=== PATIENT | female | born 2000 | race Caucasian/White ===

== ENCOUNTER 2020-04-01 21:31 | Emergency (ER) | payer OTHER, SELFPAY ==
[2020-04-01 21:32] VITALS: BP 124/73; PULSE 97; RESP 15; TEMP 36.6; O2SAT 100; BMI 19.9
--- NOTE | 2020-04-01 21:59 | EKG12_ITS ---
Test Reason : SYNCOPE Blood Pressure : / mmHG Vent. Rate : 074 BPM Atrial Rate : 074 BPM P-R Int : 098 ms QRS Dur : 092 ms QT Int : 360 ms P-R-T Axes : 020 060 021 degrees QTc Int : 399 ms Sinus rhythm with short MS Consider pre excitation syndrome: WPW Confirmed by HORTENSIA GRANADO, STEVEN ([id number]), index editor JOHN NOVA ([id number] on 04/04/2020 2:37:48 PM Referred By: ANA Confirmed By:STEVEN BAZAN MD
--- NOTE | 2020-04-01 22:01 | ED.VIS.GEN ---
History of Present Illness Chief Complaint: Syncope Informant: Patient Onset: Today Context: Sudden Onset Narrative: Patient is a 19-year-old female with a history of pots presenting after syncopal episode. Patient states this feels like her typical syncopal episodes. She states she went to get up off the couch, felt lightheaded and then woke up on the ground. No reported seizure activity. Loss of conscious time was less than 1 minute. She still felt shaky about an hour after the episode when normally she started to feel better about 20 minutes afterwards. She had her aunt drive her to the emergency room to be evaluated further. She states she recently moved and has been busier this week and not keeping up with her electrolytes as much. She denies any associated chest pain, shortness of breath or difficulty breathing. She denies any swelling of her legs. She denies any vision changes. She did not hit her head and fell on carpet. She denies any other complaints at this time. Past Medical History - Allergies and Home Meds Allergies/Adverse Reactions: Allergies erythromycin base Allergy (Verified 04/01/20 21:36) Hives Penicillins Allergy (Verified 04/01/20 21:35) Hives Past Medical History: - - POTS Surgical History: adenoidectomy Smoking Status: Never smoker Review of Systems General: Reports: - - syncope. Denies: Chills, Fever, Sweats Eyes: Denies: Visual changes - bilaterally, Diplopia ENT: Denies: Rhinorrhea, Sore throat Cardiovascular: Denies: Chest pain, Palpitations Respiratory: Denies: Dyspnea, Cough, Dyspnea on exertion Gastrointestinal: Denies: Abdominal pain, Nausea, Vomiting, Diarrhea, Melena, Hematochezia Genitourinary: Denies: Dysuria, Hematuria, Frequency Musculoskeletal: Denies: Back pain, Extremity Pain Skin: Denies: Rash, Wounds Neurological: Denies: Headache, Weakness, Numbness Physical Exam Vital Signs/Narrative: Vital Signs Temp Pulse Resp BP Pulse Ox 04/01/20 21:32 97.9 F 97 15 124/73 H 100 Inital Vital Signs reviewed: Yes General: Well nourished, Well developed, No Acute Distress Head: Normocephalic, Atraumatic Eyes: Perrl, EOMI ENT: Moist mucous membranes, No rhinorrhea Neck: Supple, Nontender Cardiovascular: Regular rate, Regular rhythm, No murmurs Respiratory: No distress, CTA bilaterally, Chest nontender Abdomen: Soft, Nontender, Nondistended, Normal bowel sounds Back: Nontender, Normal Inspection Extremities: Nontender, No edema Skin: Normal color, No rash Neurological: Alert, Oriented x3, Cranial nerves II-XII grossly intact, Normal Strength, Normal Sensation Psychological: Normal affect, Normal Mood Diagnostic/Tx/Re-eval - Rhythm Strip Rhythm Strip: Sinus Rhythm Rate: 74 Ectopy: None - EKG Initial EKG Interpretation: Sinus Rhythm, - - Normal sinus rhythm at a rate of 74 AZ interval 98 QRS 92 QTc [address] segments - Medical Decision Making Patient is evaluated after an episode of syncope. She had a prodrome of lightheadedness right before. She has a history of pots and this is consistent with this. EKG is consistent only with a very mildly shortened AZ interval. No signs of a right axis/right-sided heart strain. Normal ST segments. Did check a blood glucose which was 120. I do not think this is from hypoglycemia. Patient is well-appearing. She does not have associated chest pain, shortness of breath or other concerning symptoms. She is hemodynamically stable in the emergency room. I do not think IV fluids or checking electrolytes is indicated at this time. She is instructed to follow-up with her PCP. Patient is given Gatorade and crackers in the emergency room which she tolerates well. She is ambulatory in the emergency room and discharged home. Patient is counseled on signs and symptoms requiring return to the emergency room. Patient verbalizes agreement and understand this plan. Patient discharged home in stable and improved condition. ED Disposition - Plan for ED Patient: Disposition: Home or Assisted Living Diagnosis: Syncope Instructions: ED VAGAL SYNCOPE Additional Instructions: Please follow-up with your primary care doctor. Return the emergency room if you have any worsening symptoms.
[2020-04-01 22:05] LABS: Bedside Glucose 112 mg/dL (70-110)
[2020-04-01 23:36] VITALS: BP 118/68; PULSE 70
== END 2020-04-02 00:03 | disposition home or self-care (01) ==
LOC: ED 23:53
PROVIDERS: Emergency Provider Emergency Medicine
DX: R55 Syncope and collapse (principal); Z79.3 Long term (current) use of hormonal contraceptives; Z79.899 Other long term (current) drug therapy; Z88.0 Allergy status to penicillin; Z88.1 Allergy status to other antibiotic agents
CPT/HCPCS: 82962; 93005; 99282

== ENCOUNTER 2020-05-28 17:46 | Emergency (ER) | payer OTHER, SELFPAY ==
[2020-05-28 17:49] VITALS: BP 109/63; PULSE 95; RESP 17; TEMP 36.5; O2SAT 98; BMI 18.6
--- NOTE | 2020-05-28 18:06 | ED.VIS.GEN ---
History of Present Illness Chief Complaint: Nausea/Vomiting Informant: Patient Onset: Days - 5 days Context: Gradual Onset Current Severity: Mild Maximum Severity: Mild Narrative: Patient presents with nausea and vomiting for the past 5 days. She states last Saturday she was seen at an urgent care in [place] for red sores and bumps on her private area. She was told they thought she had syphilis. They started her on doxycycline. The following day she had nausea and vomiting. She called the office and was switched to Bactrim. She states the lesions on her labia are improving. She continues to have nausea and vomiting. 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 - Past Medical History (1) POTS (postural orthostatic tachycardia syndrome) Status: Chronic Past Medical History - Allergies and Home Meds Allergies/Adverse Reactions: Allergies erythromycin base Allergy (Verified 05/28/20 17:49) Hives Penicillins Allergy (Verified 05/28/20 17:49) Hives Primary Care Physician: Care Physician,No Primary [Primary Care Provider] - Prior records reviewed: Yes Surgical History: adenoidectomy Smoking Status: Never smoker Review of Systems General: Denies: Chills, Fever Eyes: Denies: Visual changes - bilaterally ENT: Denies: Bilateral ear pain Cardiovascular: Denies: Chest pain Respiratory: Denies: Dyspnea, Cough Gastrointestinal: Reports: Nausea, Vomiting. Denies: Abdominal pain, Diarrhea Genitourinary: Denies: Dysuria Musculoskeletal: Denies: Extremity Pain Skin: Reports: Rash Hematologic: Denies: Easy bruising, Easy bleeding Allergy: Denies: Uticaria Physical Exam Vital Signs/Narrative: Vital Signs Temp Pulse Resp BP Pulse Ox 05/28/20 17:49 97.7 F L 95 17 109/63 98 Inital Vital Signs reviewed: Yes General: Well nourished, Well developed Head: Normocephalic ENT: Moist mucous membranes Neck: Supple Cardiovascular: Regular rate, Regular rhythm Respiratory: No distress, CTA bilaterally Abdomen: Soft, Nontender Extremities: Nontender Skin: Normal color Neurological: Alert, Oriented x3 Psychological: Normal affect Diagnostic/Tx/Re-eval Laboratory Results 05/28/20 05/28/20 05/28/20 18:15 18:20 18:20 WBC 5.8 RBC 4.59 Hgb 13.9 Hct 42.4 MCV 92.4 MCH 30.3 MCHC 32.8 RDW Std Deviation 39.1 RDW Coeff of Janel 11.7 Plt Count 256 MPV 10.2 Immature Gran % (Auto) 0.300 Neut % (Auto) 60.8 Lymph % (Auto) 31.3 Stevens % (Auto) 5.9 Eos % (Auto) 1.0 Baso % (Auto) 0.7 Absolute Neuts (auto) 3.5 Absolute Lymphs (auto) 1.80 Nucleated RBC % 0 Sodium 142 Potassium 3.3 L Chloride 108 H Carbon Dioxide 26.0 Anion Gap 8 BUN 7 Creatinine 0.74 Estim Creat Clear Calc 99.10 Est GFR (MDRD) Af Amer 127 Est GFR (MDRD) Non-Af 105 BUN/Creatinine Ratio 9.4 L Glucose 98 Calcium 8.7 Serum , Qual Urine Color Yellow Urine Clarity Clear Urine pH 6.5 Ur Specific [place] 1.020 Urine Protein 15 H Urine Glucose (UA) Normal Urine Ketones 5 H Urine Occult Blood 50 H Urine Nitrite Negative Urine Bilirubin Negative Urine Urobilinogen Normal Ur Leukocyte Esterase Negative Urine RBC 0-5 SEEN Urine WBC 0-5 SEEN Ur Squamous Epith Cells 5-10 SEEN Urine Bacteria 1+ Urine Mucus 1+ 05/28/20 18:20 WBC RBC Hgb Hct MCV MCH MCHC RDW Std Deviation RDW Coeff of Janel Plt Count MPV Immature Gran % (Auto) Neut % (Auto) Lymph % (Auto) Stevens % (Auto) Eos % (Auto) Baso % (Auto) Absolute Neuts (auto) Absolute Lymphs (auto) Nucleated RBC % Sodium Potassium Chloride Carbon Dioxide Anion Gap BUN Creatinine Estim Creat Clear Calc Est GFR (MDRD) Af Amer Est GFR (MDRD) Non-Af BUN/Creatinine Ratio Glucose Calcium Serum , Qual NEGATIVE Urine Color Urine Clarity Urine pH Ur Specific [place] Urine Protein Urine Glucose (UA) Urine Ketones Urine Occult Blood Urine Nitrite Urine Bilirubin Urine Urobilinogen Ur Leukocyte Esterase Urine RBC Urine WBC Ur Squamous Epith Cells Urine Bacteria Urine Mucus - Medical Decision Making Patient is given liter IV fluids and Zofran. On repeat evaluation her nausea is improved. I was able to review records through [email or web address]. Her syphilis test was nonreactive. HSV 1 and 2 IgG antibiotics were negative. Gonorrhea and Chlamydia tests were normal. Patient is referred to Dr. 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 ED Disposition - Plan for ED Patient: Disposition: Home or Assisted Living Diagnosis: Vomiting Instructions: ED Nausea Vomiting Adult Prescriptions: Ondansetron [Zofran Odt] 4 mg PO Q8H PRN PRN #10 tablet PRN Reason: Nausea Referrals: Mitzy Weinstein MD [STAFF PHYSICIAN] - As soon as possible
[2020-05-28] MEDS: 0.9% Normal Saline 1,000 ML 1000 ML IV (18:20)
[2020-05-28] MEDS: Ondansetron 4 MG/2 ML Vial IV (18:20)
[2020-05-28 18:29] LABS: Color, Urine Yellow (Yellow); Glucose, Dipstick Normal (Normal); Ketone-Dipstick 5 mg/dl (Negative); Leukocyte Esterase-Dipstick Negative /ul (Negative); Nitrite-Dipstick Negative (Negative); Occult Blood-Urine 50 /ul (Negative); Protein-Dipstick 15 mg/dl (Negative); Urine Bilirubin Dipstick Negative (Negative); Urine Clarity Clear (Clear); Urine Urobilinogen Normal (Normal); Urine pH 6.5 (5.0 - 8.0)
[2020-05-28 18:32] LABS: Absolute Neutrophil Count 3.5 X10^3/uL (2.0-7.7); Basophil# 0.04 X10^3/uL; Basophil% 0.7 % (0-1); Eosinophil# 0.06 X10^3/uL; Hematocrit 42.4 % (37-47); Hemoglobin 13.9 g/dL (12.0-15.0); Lymphocyte % 31.3 % (19-41); Mean Corp Hgb Conc 32.8 g/dL (32-36); Mean Corpuscular Hgb 30.3 pg (27.0-32.0); Mean Corpuscular Volume 92.4 fL (81-99); Mean Platelet Vol. 10.2 fl (6.2-12.0); Monocyte# 0.34 X10^3/uL; Monocyte% 5.9 % (0-10); NRBC Flagged by Analyzer 0 % (0-5); Neutrophil # 3.49 X10^3/uL (2.7-7.7); Neutrophil % 60.8 % (47-70); Platelet Count 256 K/mm3 (150-450); RBC Distribution Width CV 11.7 % (11.6-14.6); RBC Distribution Width SD 39.1 fl (35.1-43.9); Red Blood Count 4.59 M/mm3 (4.2-5.4); White Blood Count 5.8 K/mm3 (4.4-11.0)
[2020-05-28 18:38] LABS: Internal QC Validated? YES +Cl - CLEAR BKGD
[2020-05-28 18:41] LABS: Pregnancy, Serum, hCG Quali. NEGATIVE Negative
[2020-05-28 18:42] LABS: Anion Gap 8 (5-15); BUN 7 mg/dL (7-18); BUN/Creat Ratio 9.4 RATIO (10-20); Calcium,Total 8.7 mg/dL (8.5-10.1); Chloride 108 mmol/L (98-107); Creatinine, Serum 0.74 mg/dL (0.55-1.02); EST Glomerular Filtration Rate 105 mL/min (>60); Est Glom Filt Rate - Afr Amer 127 mL/min (>60); Glucose 98 mg/dL (74-106); Potassium 3.3 mmol/L (3.5-5.1); Sodium Level 142 mmol/L (136-145)
[2020-05-28 18:45] LABS: Bacteria 1+ /hpf (None Seen); Mucous, Urine 1+ /hpf (<or=2+); Red Blood Cells-Urine 0-5 SEEN /hpf (0-5); Squamous Epithelial Cells - UA 5-10 SEEN /hpf (5-10); White Blood Cells 0-5 SEEN /hpf (0-5)
[2020-05-28 20:17] VITALS: BP 124/76; PULSE 94; RESP 17; O2SAT 98
== END 2020-05-28 20:18 | disposition home or self-care (01) ==
PROVIDERS: Emergency Provider Emergency Medicine
DX: R11.2 Nausea with vomiting, unspecified (principal); N90.89 Other specified noninflammatory disorders of vulva and perineum; I49.8 Other specified cardiac arrhythmias
CPT/HCPCS: 80048; 81001; 84703; 85025; 96361; 96374; 99283; J7030; A4216; J2405

== ENCOUNTER 2020-09-07 18:00 | Emergency (ER) | payer OTHER, SELFPAY ==
[2020-09-07 18:01] VITALS: BP 127/88; PULSE 112; RESP 15; TEMP 38.1; O2SAT 99; BMI 18.8
[2020-09-07 18:23] VITALS: TEMP 37.1
[2020-09-07] MEDS: Clindamycin HCl 150 MG Capsule 300 MG PO (18:25)
[2020-09-07] MEDS: Acetaminophen 500 MG Tablet 1000 MG PO (18:25)
--- NOTE | 2020-09-07 19:15 | DCINST.ED_ITS ---
ED Disposition - Plan for ED Patient: Instructions: ED Abscess Incision And Drainage Prescriptions: Clindamycin [Cleocin] 300 mg PO 4X/DAY #80 cap Prescription Printed Referrals: Jcarlos Navarrete MD [NON-STAFF] -
--- NOTE | 2020-09-07 19:17 | ED.VISSUMM ---
- ER Visit Summary Date of Service: 09/07/20 Chief Complaint: Ingrown hair History of Present Illness: The patient is a 20 F presenting with ingrown hair. Patient states she noticed an ingrown hair in her pelvic region on Saturday. She states she tried to squeeze it and try to use a clean needle to drain it. It has now increased in size and has redness surrounding it. She had a temperature up to 100.6. She denies other complaints. Physical Examination: Vitals are stable. Temperature 100.6. Alert no acute distress. HEENT exam is unremarkable. Neck is supple. Lungs are clear and equal bilaterally. Heart is regular rate and rhythm. Abdomen is soft nontender nondistended. 2 cm left suprapubic indurated abscess with mild amount of fluctuance, mild surrounding erythema. Extremities are unremarkable. Skin is warm and dry. No focal neurologic deficit. Remainder of exam is unremarkable. Emergency Department Course and Treatment: Repeat temperature normal. Patient was given Tylenol. Area was anesthetized with lidocaine. Incised with 11 blade. Mild amount of pus was drained. Irrigated with saline. She is given clindamycin and a prescription for clindamycin. She was given Dr. Navarrete on-call for no doc for follow-up. Advised return to ED for worsening complaints. Disposition: Discharge home Impression: Abdominal wall abscess, I&D This note was generated with [employer] dictation software. It may contain incorrect words, spelling, and punctuation that were not noted in review of the chart prior to signing ED Disposition - Plan for ED Patient: Instructions: ED Abscess Incision And Drainage Prescriptions: Clindamycin [Cleocin] 300 mg PO 4X/DAY #80 cap Prescription Printed Referrals: Jcarlos Navarrete MD [NON-STAFF] -
== END 2020-09-07 19:33 | disposition home or self-care (01) ==
PROVIDERS: Emergency Provider Emergency Medicine
DX: L02.211 Cutaneous abscess of abdominal wall (principal); J45.909 Unspecified asthma, uncomplicated; Z79.899 Other long term (current) drug therapy
CPT/HCPCS: 10060; 99283

== ENCOUNTER 2020-10-20 14:58 | Emergency (ER) | payer OTHER, SELFPAY ==
[2020-10-20 15:00] VITALS: BP 120/74; PULSE 90; RESP 16; TEMP 36.4; O2SAT 100; BMI 18.0
[2020-10-20 15:02] VITALS: BP 120/74; PULSE 90; RESP 16; TEMP 36.4; O2SAT 100
--- NOTE | 2020-10-20 16:28 | RAD_ITS ---
STUDY: X-RAY - RIGHT FOOT CLINICAL: Female, 20 years old. alise waller ran over foot at work TECHNIQUE: 3 view(s) of the foot. COMPARISON: None. FINDINGS: Normal talus, calcaneus, and tarsal bones. 8 mm type I accessory navicular bone. Normal visualized subtalar, talonavicular, calcaneocuboid, tarsal and tarsometatarsal articulations. Normal metatarsi. Normal metatarsophalangeal joint of the great toe. Normal tibial and fibular sesamoid bones. Normal interphalangeal joint of the great toe. Normal phalanges of the great toe. Normal second through fifth metatarsophalangeal joints. Normal interphalangeal joints and phalanges of the lesser toes. The soft tissue structures are unremarkable. RAD/Foot min 3 Views IMPRESSION: Normal x-ray examination of the foot. Electronically Signed: Nain Spann MD at 17:00 EST Tel , Service support ,
--- NOTE | 2020-10-20 16:29 | ED.VIS.LOWEX ---
History of Present Illness Chief Complaint: Lower Extremity Injury Narrative: Patient presenting for evaluation secondary to a lower extremity injury. Patient was at work, and a pallet christin ran over her right foot. She has moderate amount of pain and some bruising in the area. Patient states that when that happened she stepped backwards and then stepped on a nail with her left foot. Tetanus status is greater than 5 years. Pain is mild worse with palpation movement and ambulation. Review of systems otherwise negative. Past Medical History - Allergies and Home Meds Allergies/Adverse Reactions: Allergies erythromycin base Allergy (Verified 05/28/20 17:49) Hives Penicillins Allergy (Verified 05/28/20 17:49) Hives Primary Care Physician: Care Physician,No Primary [Primary Care Provider] - Prior records reviewed: Yes Past Medical History: None Surgical History: adenoidectomy Smoking Status: Never smoker Alcohol: None Drugs: None Review of Systems General: Denies: Chills, Fever Respiratory: Denies: Dyspnea, Cough Gastrointestinal: Denies: Nausea, Vomiting Musculoskeletal: Reports: Extremity Pain Neurological: Denies: Weakness, Parasthesia Hematologic: Denies: Easy bruising, Easy bleeding Physical Exam Vital Signs/Narrative: Vital Signs Temp Pulse Resp BP Pulse Ox 10/20/20 15:02 97.6 F L 90 16 120/74 100 10/20/20 15:00 97.6 F L 90 16 120/74 100 - Extremity Exam Right Foot: - - Examination the patient's lower extremities shows swelling over the medial dorsal aspect of the patient's midfoot with underlying ecchymosis and tenderness to palpation in that area. Normal DP and PT pulses. Normal capillary refill the toes. Normal sensation. No pain with passive stretch of the Left Foot: - - Left foot shows an abrasion over the lateral surface of the sole of the patient's foot consistent with where she stepped on the nail. No evidence of foreign bodies. General: Well nourished, Well developed Head: Normocephalic ENT: No Trauma Neck: Full ROM Cardiovascular: Regular rate, Regular rhythm, - - 2+ DP and PT pulses Respiratory: No distress Skin: Normal color Neurological: Alert, Oriented x3 Diagnostic/Tx/Re-eval Clinical Impression(s) from Imaging Studies Foot X-Ray 10/20/20 16:28 IMPRESSION: Normal x-ray examination of the foot. Electronically Signed: Nain Spann MD at 17:00 EST Tel , Service support , - Medical Decision Making Patient presented secondary to a foot injury. X-rays by my personal review as well as radiology, 3 views, show no evidence of acute fracture. Patient's tetanus status was updated. Patient will be placed in a postoperative shoe for comfort. She will follow-up with [facility] as needed. ED Disposition - Plan for ED Patient: Disposition: Home or Assisted Living Diagnosis: Contusion of right foot Instructions: ED FOOT CONTUSION Additional Instructions: Followup at [facility] as needed
[2020-10-20] MEDS: Diphth,Pertuss(Acell),Tet Vac 0.5 ML Vial IM (16:33)
== END 2020-10-20 17:24 | disposition home or self-care (01) ==
LOC: ED 17:04
PROVIDERS: Emergency Provider Emergency Medicine
DX: S90.31XA Contusion of right foot, initial encounter (principal); W22.8XXA Striking against or struck by other objects, initial encounter; S90.812A Abrasion, left foot, initial encounter; W45.0XXA Nail entering through skin, initial encounter; Y93.9 Activity, unspecified; Y92.9 Unspecified place or not applicable; Y99.0 Civilian activity done for income or pay; Z23 Encounter for immunization; Z79.899 Other long term (current) drug therapy
CPT/HCPCS: 73630; 90715; 99283

== ENCOUNTER 2020-10-26 10:10 | Emergency (ER) | payer OTHER, SELFPAY ==
[2020-10-26 10:11] VITALS: BP 124/73; PULSE 101; RESP 17; TEMP 36.6; O2SAT 99; BMI 18.8
--- NOTE | 2020-10-26 10:19 | ED.VIS.GEN ---
History of Present Illness Chief Complaint: Flank Pain Informant: Patient Narrative: 20-year-old female states that she was diagnosed with a urinary tract infection yesterday at urgent care. She states she was prescribed Bactrim. Last night she experienced nausea and vomiting and bilateral low back pain. She denies any recent falls or heavy lifting. She notes the pain is worse with movement and even with light touch. No reported fevers or rashes. No cough or shortness of breath. No diarrhea. - Past Medical History (1) POTS (postural orthostatic tachycardia syndrome) Status: Chronic Past Medical History - Allergies and Home Meds Allergies/Adverse Reactions: Allergies erythromycin base Allergy (Verified 10/26/20 10:11) Hives Penicillins Allergy (Verified 10/26/20 10:11) Hives Primary Care Physician: Care Physician,No Primary [Primary Care Provider] - Prior records reviewed: Yes Surgical History: adenoidectomy Smoking Status: Never smoker Review of Systems General: Denies: Chills, Fever, Sweats Eyes: Denies: Visual changes - bilaterally, Diplopia ENT: Denies: Rhinorrhea, Sore throat Cardiovascular: Denies: Chest pain, Palpitations Respiratory: Denies: Dyspnea, Cough, Dyspnea on exertion Gastrointestinal: Reports: Nausea, Vomiting. Denies: Abdominal pain, Diarrhea, Melena, Hematochezia Genitourinary: Reports: Dysuria. Denies: Hematuria, Frequency Musculoskeletal: Reports: Back pain. Denies: Extremity Pain Skin: Denies: Rash, Wounds Neurological: Denies: Headache, Weakness, Numbness Physical Exam Vital Signs/Narrative: Vital Signs Temp Pulse Resp BP Pulse Ox 10/26/20 10:11 98 F 101 H 17 124/73 H 99 Inital Vital Signs reviewed: Yes General: Well nourished, Well developed, No Acute Distress Head: Normocephalic, Atraumatic Eyes: Perrl, EOMI ENT: Moist mucous membranes, No rhinorrhea Neck: Supple, Nontender Cardiovascular: Regular rate, Regular rhythm, No murmurs Respiratory: No distress, CTA bilaterally, Chest nontender Abdomen: Soft, Nontender, Nondistended, Normal bowel sounds Back: - - Patient has tenderness to palpation in the lower lumbar paraspinal musculature. She points to the area below her CVA is where she hurts. Extremities: Nontender, No edema Skin: Normal color, No rash Neurological: Alert, Oriented x3, Cranial nerves II-XII grossly intact, Normal Strength, Normal Sensation Psychological: Normal affect, Normal Mood Diagnostic/Tx/Re-eval Laboratory Last Values WBC 4.2 K/mm3 (4.4-11.0) L 10/26/20 10:35 RBC 4.69 M/mm3 (4.2-5.4) 10/26/20 10:35 Hgb 14.1 g/dL (12.0-15.0) 10/26/20 10:35 Hct 44.0 % (37-47) 10/26/20 10:35 MCV 93.8 fL (81-99) 10/26/20 10:35 MCH 30.1 pg (27.0-32.0) 10/26/20 10:35 MCHC 32.0 g/dL (32-36) 10/26/20 10:35 RDW Std Deviation 41.3 fl (35.1-43.9) 10/26/20 10:35 RDW Coeff of Janel 11.9 % (11.6-14.6) 10/26/20 10:35 Plt Count 234 K/mm3 (150-450) 10/26/20 10:35 MPV 10.3 fl (6.2-12.0) 10/26/20 10:35 Immature Gran % (Auto) 0.200 % (0.0-0.9) 10/26/20 10:35 Neut % (Auto) 44.5 % (47-70) L 10/26/20 10:35 Lymph % (Auto) 40.0 % (19-41) 10/26/20 10:35 [place] % (Auto) 9.3 % (0-10) 10/26/20 10:35 Eos % (Auto) 5.0 % (0-5) 10/26/20 10:35 Baso % (Auto) 1.0 % (0-1) 10/26/20 10:35 Absolute Neuts (auto) 1.9 X10^3/uL (2.0-7.7) L 10/26/20 10:35 Absolute Lymphs (auto) 1.67 X10^3/uL (0.83-4.51) 10/26/20 10:35 Nucleated RBC % 0 % (0-5) 10/26/20 10:35 Sodium 139 mmol/L (136-145) 10/26/20 10:35 Potassium 3.6 mmol/L (3.5-5.1) 10/26/20 10:35 Chloride 105 mmol/L (98-107) 10/26/20 10:35 Carbon Dioxide 29.0 mmol/L (21.0-32.0) 10/26/20 10:35 Anion Gap 5 (5-15) 10/26/20 10:35 BUN 8 mg/dL (7-18) 10/26/20 10:35 Creatinine 0.75 mg/dL (0.55-1.02) 10/26/20 10:35 Estim Creat Clear Calc 101.96 ml/min 10/26/20 10:35 Est GFR (MDRD) Af Amer 125 mL/min (>60) 10/26/20 10:35 Est GFR (MDRD) Non-Af 103 mL/min (>60) 10/26/20 10:35 BUN/Creatinine Ratio 10.6 RATIO (-20) 10/26/20 10:35 Glucose 95 mg/dL (74-106) 10/26/20 10:35 Calcium 9.0 mg/dL (8.5-10.1) 10/26/20 10:35 Urine Color Straw (Yellow) 10/26/20 10:30 Urine Clarity Sl. Cloudy (Clear) 10/26/20 10:30 Urine pH 6.5 (5.0 - 8.0) 10/26/20 10:30 Ur Specific [place] 1.015 (1.002-1.030) 10/26/20 10:30 Urine Protein 30 mg/dl (Negative) H 10/26/20 10:30 Urine Glucose (UA) Normal mg/dl (Normal) 10/26/20 10:30 Urine Ketones Negative mg/dl (Negative) 10/26/20 10:30 Urine Occult Blood 25 /ul (Negative) H 10/26/20 10:30 Urine Nitrite Negative (Negative) 10/26/20 10:30 Urine Bilirubin Negative mg/dL (Negative) 10/26/20 10:30 Urine Urobilinogen Normal mg/dl (Normal) 10/26/20 10:30 Ur Leukocyte Esterase 500 /ul (Negative) H 10/26/20 10:30 Urine RBC 0 SEEN /hpf (0-5) 10/26/20 10:30 Urine WBC 25-50 SEEN /hpf (0-5) 10/26/20 10:30 Ur Squamous Epith Cells 5-10 SEEN /hpf (5-10) 10/26/20 10:30 Urine Bacteria 2+ /hpf (None Seen) 10/26/20 10:30 Urine Mucus 3+ /hpf (<or=2+) 10/26/20 10:30 Urine Test Negative Negative 10/26/20 10:30 - Medical Decision Making Basic labs showed showed a very mild leukopenia. Creatinine normal. Urinalysis slightly contaminated but I would still classify it as infection especially with her symptoms. And she is on day [address] of [address] of the abdomen pelvis does not demonstrate any renal infarct, perinephric stranding, or ureterolithiasis. At this point based on the physical exam I think is most likely low back pain musculoskeletal in nature. I can write for some Flexeril recommend Motrin. I will can write for some Zofran as well. Follow-up with primary care return if worsening or concerns ED Disposition - Plan for ED Patient: Disposition: Home or Assisted Living Diagnosis: UTI (urinary tract infection), Lumbar back pain, Vomiting Instructions: ED Low Back Pain General Prescriptions: cycloBENZAPRine HCl [Flexeril] 10 mg PO TID PRN #15 tab PRN Reason: Muscle Spasm Prescription Printed Ibuprofen [Motrin] 800 mg PO TID PRN PRN #20 tab PRN Reason: Pain Prescription Printed Ondansetron [Zofran Odt] 4 mg PO Q6H PRN PRN #15 tab PRN Reason: Nausea Prescription Printed Referrals: Glenny Ledbetter MD [STAFF PHYSICIAN] - As Needed (for primary care )
[2020-10-26] MEDS: 0.9% Normal Saline 1,000 ML 1000 ML IV (10:32)
[2020-10-26] MEDS: Ketorolac 30 MG/ML Syringe IV (10:32)
[2020-10-26] MEDS: Ondansetron 4 MG/2 ML Vial IV (10:33)
[2020-10-26 10:45] LABS: Red Blood Cells-Urine 0 SEEN /hpf (0-5)
[2020-10-26 10:52] LABS: Absolute Lymphocyte Count 1.67 X10^3/uL (0.83-4.51); Absolute Neutrophil Count 1.9 X10^3/uL (2.0-7.7); Basophil# 0.04 X10^3/uL; Eosinophil# 0.21 X10^3/uL; Hemoglobin 14.1 g/dL (12.0-15.0); Lymphocyte # 1.67 X10^3/ul (4.0); Mean Corpuscular Hgb 30.1 pg (27.0-32.0); Mean Corpuscular Volume 93.8 fL (81-99); Mean Platelet Vol. 10.3 fl (6.2-12.0); Monocyte# 0.39 X10^3/uL; Monocyte% 9.3 % (0-10); NRBC Flagged by Analyzer 0 % (0-5); Neutrophil # 1.86 X10^3/uL (2.7-7.7); Neutrophil % 44.5 % (47-70); Platelet Count 234 K/mm3 (150-450); RBC Distribution Width CV 11.9 % (11.6-14.6); RBC Distribution Width SD 41.3 fl (35.1-43.9); Red Blood Count 4.69 M/mm3 (4.2-5.4); White Blood Count 4.2 K/mm3 (4.4-11.0)
[2020-10-26 10:56] LABS: Color, Urine Straw (Yellow); Glucose, Dipstick Normal (Normal); Ketone-Dipstick Negative (Negative); Leukocyte Esterase-Dipstick 500 /ul (Negative); Nitrite-Dipstick Negative (Negative); Occult Blood-Urine 25 /ul (Negative); Protein-Dipstick 30 mg/dl (Negative); Specific Gravity, Urine 1.015 (1.002-1.030); Urine Bilirubin Dipstick Negative (Negative); Urine Clarity Sl. Cloudy (Clear); Urine Urobilinogen Normal (Normal); Urine pH 6.5 (5.0 - 8.0)
[2020-10-26 11:04] LABS: Anion Gap 5 (5-15); BUN 8 mg/dL (7-18); BUN/Creat Ratio 10.6 RATIO (10-20); Chloride 105 mmol/L (98-107); Creatinine, Serum 0.75 mg/dL (0.55-1.02); EST Glomerular Filtration Rate 103 mL/min (>60); Est Glom Filt Rate - Afr Amer 125 mL/min (>60); Estimated Creatinine Clearance 101.96 ml/min; Glucose 95 mg/dL (74-106); Potassium 3.6 mmol/L (3.5-5.1); Sodium Level 139 mmol/L (136-145)
[2020-10-26 11:12] LABS: Mucous, Urine 3+ /hpf (<or=2+); Squamous Epithelial Cells - UA 5-10 SEEN /hpf (5-10); White Blood Cells 25-50 SEEN /hpf (0-5)
[2020-10-26 11:13] LABS: Bacteria 2+ /hpf (None Seen); Internal QC Validated? YES +Cl - CLEAR BKGD
[2020-10-26 11:14] LABS: Pregnancy, Urine Negative Negative
--- NOTE | 2020-10-26 11:22 | CT_ITS ---
STUDY: CT ABDOMEN AND PELVIS WITH CONTRAST REASON FOR EXAM: Female, 20 years old. Bilateral flank pain, recently diagnosed UTI, hx of recurrent UTI. Prelim already completed. RADIATION DOSAGE (If Supplied By Facility): CTDIvol = ( ) mGy, DLP = ( 290.57 ) mGycm TECHNIQUE: Transaxial images were obtained from the dome of the diaphragm to the symphysis pubis without oral contrast. IV 100mL Isovue-300 was administered. Sagittal and coronal images were reconstructed. Individualized dose optimization techniques were used for this CT. COMPARISON: None. FINDINGS: The visualized lung bases are unremarkable. The visualized portions of the heart are within normal limits. There is elongation of the liver which may be consistent with normal variant. There is no focal mass or bile duct dilatation.. Normal gallbladder and extrahepatic biliary system. Normal spleen. Normal pancreas. Normal bilateral adrenal glands. Normal right kidney. Normal left kidney. Normal visualized stomach. Diffuse fecal retention in the colon. No evidence for small bowel obstruction.. Normal appendix Normal abdominal aorta. Normal inferior vena cava. Normal retroperitoneum. Incompletely distended thick-walled bladder which is nonspecific in etiology but may be consistent with cystitis. Normal abdominal wall. Normal osseous structures. CT/Abdomen/Pelvis W IV Cont ONLY IMPRESSION: Incompletely distended thick-walled bladder which may be consistent with cystitis. No evidence for renal obstruction or definitive evidence for acute pyelonephritis. Electronically Signed: Reji Christopher MD at 18:49 EST , Service support ,
[2020-10-26 12:43] VITALS: BP 106/63; PULSE 66; RESP 17; O2SAT 99
== END 2020-10-26 13:14 | disposition home or self-care (01) ==
PROVIDERS: Emergency Provider Emergency Medicine
DX: N39.0 Urinary tract infection, site not specified (principal); M54.5 Low back pain; R11.2 Nausea with vomiting, unspecified; Z79.899 Other long term (current) drug therapy
CPT/HCPCS: 74177; 80048; 81001; 81025; 85025; 96361; 96374; 96375; 99283; J7030; Q9967; A4216; J2405

== ENCOUNTER 2021-01-16 13:11 | Emergency (ER) | payer OTHER, SELFPAY ==
[2021-01-16 13:12] VITALS: BP 139/75; PULSE 89; RESP 16; TEMP 36.1; O2SAT 97; BMI 19.3
--- NOTE | 2021-01-16 14:01 | EKG12_ITS ---
Test Reason : CP Blood Pressure : / mmHG Vent. Rate : 074 BPM Atrial Rate : 074 BPM P-R Int : 096 ms QRS Dur : 090 ms QT Int : 378 ms P-R-T Axes : 021 056 020 degrees QTc Int : 419 ms Sinus rhythm with sinus arrhythmia with short TN Otherwise normal ECG Confirmed by HORTENSIA GRANADO, STEVEN ([id number]), editor newspaper CARLOS RODRIGUEZ ([id number]) on 01/19/2021 1:40:27 PM Referred By: ARLEEN Confirmed By:STEVEN BAZAN MD
--- NOTE | 2021-01-16 14:02 | ED.VIS.GEN ---
History of Present Illness Chief Complaint: Syncope Informant: Patient Onset: Today Current Severity: Mild Maximum Severity: Mild Narrative: Patient presents secondary to epigastric pain. She states she has had increased reflux symptoms lately but has had worsened pain than what she is ever had with reflux previously. She now has constant burning pain in the epigastrium. She does report an episode of syncope this morning. She is a history of pots and states that while she was getting around this morning for work she became lightheaded and passed out. This is consistent with her prior episodes of syncope. She states that she used to be on Florinef for her POTS but states that she has not seen a primary care doctor in quite some time and no longer has a prescription. - Past Medical History (1) POTS (postural orthostatic tachycardia syndrome) Status: Chronic Past Medical History - Allergies and Home Meds Allergies/Adverse Reactions: Allergies erythromycin base Allergy (Verified 01/16/21 13:13) Hives Penicillins Allergy (Verified 01/16/21 13:13) Hives Primary Care Physician: Vy Collins MD [STAFF PHYSICIAN] - As soon as possible Prior records reviewed: Yes Surgical History: adenoidectomy Smoking Status: Never smoker Review of Systems General: Denies: Chills, Fever Eyes: Denies: Visual changes - bilaterally ENT: Denies: Bilateral ear pain Cardiovascular: Denies: Chest pain Respiratory: Denies: Dyspnea, Cough Gastrointestinal: Reports: Abdominal pain. Denies: Vomiting, Diarrhea Genitourinary: Denies: Dysuria Musculoskeletal: Denies: Swelling, Extremity Pain Skin: Denies: Rash Neurological: Denies: Headache Hematologic: Denies: Easy bruising, Easy bleeding Allergy: Denies: Uticaria Physical Exam Vital Signs/Narrative: Vital Signs Temp Pulse Resp BP Pulse Ox 01/16/21 13:12 96.9 F L 89 16 139/75 H 97 Inital Vital Signs reviewed: Yes General: Well nourished, Well developed Head: Normocephalic ENT: Moist mucous membranes Neck: Supple Cardiovascular: Regular rate, Regular rhythm Respiratory: No distress, CTA bilaterally Abdomen: Soft, Tender - Epigastric tenderness to palpation., Hypoactive bowel sounds. Negative for: Guarding, Rebound tenderness Extremities: Nontender Skin: Normal color Neurological: Alert, Oriented x3 Psychological: Normal affect Diagnostic/Tx/Re-eval Laboratory Results 01/16/21 01/16/21 14:15 14:15 WBC 3.7 L RBC 4.51 Hgb 13.5 Hct 41.4 MCV 91.8 MCH 29.9 MCHC 32.6 RDW Std Deviation 41.5 RDW Coeff of Janel 12.2 Plt Count 211 MPV 10.1 Immature Gran % (Auto) 0.000 Neut % (Auto) 55.4 Lymph % (Auto) 33.4 [place] % (Auto) 7.8 Eos % (Auto) 2.9 Baso % (Auto) 0.5 Absolute Neuts (auto) 2.1 Absolute Lymphs (auto) 1.25 Nucleated RBC % 0 Sodium 141 Potassium 3.8 Chloride 108 H Carbon Dioxide 28.0 Anion Gap 5 BUN 6 L Creatinine 0.62 Estim Creat Clear Calc 123.34 Est GFR (MDRD) Af Amer 155 Est GFR (MDRD) Non-Af 128 BUN/Creatinine Ratio 9.7 L Glucose 92 Calcium 8.9 Total Bilirubin 0.30 Direct Bilirubin 0.12 AST 9 L ALT 20 Alkaline Phosphatase 14 L Total Protein 7.1 Albumin 3.8 Globulin 3.3 Lipase 76 - EKG Initial EKG Interpretation: Sinus Rhythm - Sinus at 74. No acute ischemia. - Medical Decision Making Patient was given IV fluids along with a p.o. dose of Protonix. On repeat evaluation she is resting comfortably. We will start her on Prilosec for her reflux and I will write her a short course of Florinef. She be referred to Dr. Collins for follow-up. ED Disposition - Plan for ED Patient: Disposition: Home or Assisted Living Diagnosis: POTS (postural orthostatic tachycardia syndrome), Syncope, GERD (gastroesophageal reflux disease) Instructions: ED GERD (Adult) Prescriptions: Fludrocortisone Acetate [Florinef] 0.1 mg PO DAILY@0800 #30 tab Transmission Status: Pending to [id number] Omeprazole [Prilosec] 20 mg PO DAILY #30 cap Transmission Status: Pending to [id number] Referrals: Vy Collins MD [STAFF PHYSICIAN] - As soon as possible
[2021-01-16 14:23] LABS: Absolute Lymphocyte Count 1.25 X10^3/uL (0.83-4.51); Absolute Neutrophil Count 2.1 X10^3/uL (2.0-7.7); Basophil# 0.02 X10^3/uL; Basophil% 0.5 % (0-1); Eosinophil# 0.11 X10^3/uL; Eosinophils% 2.9 % (0-5); Hematocrit 41.4 % (37-47); Hemoglobin 13.5 g/dL (12.0-15.0); Lymphocyte # 1.25 X10^3/ul (4.0); Lymphocyte % 33.4 % (19-41); Mean Corp Hgb Conc 32.6 g/dL (32-36); Mean Corpuscular Hgb 29.9 pg (27.0-32.0); Mean Corpuscular Volume 91.8 fL (81-99); Mean Platelet Vol. 10.1 fl (6.2-12.0); Monocyte# 0.29 X10^3/uL; Monocyte% 7.8 % (0-10); NRBC Flagged by Analyzer 0 % (0-5); Neutrophil # 2.07 X10^3/uL (2.7-7.7); Neutrophil % 55.4 % (47-70); Platelet Count 211 K/mm3 (150-450); RBC Distribution Width CV 12.2 % (11.6-14.6); RBC Distribution Width SD 41.5 fl (35.1-43.9); Red Blood Count 4.51 M/mm3 (4.2-5.4); White Blood Count 3.7 K/mm3 (4.4-11.0)
[2021-01-16 14:39] LABS: AST(SGOT) 9 U/L (15-37); Alanine Aminotransfer ALT/SGPT 20 U/L (13-56); Albumin, Serum 3.8 g/dL (3.2-5.0); Alkaline Phosphatase 14 U/L (45-117); Anion Gap 5 (5-15); BUN 6 mg/dL (7-18); BUN/Creat Ratio 9.7 RATIO (10-20); Bilirubin, Direct 0.12 mg/dL (0.00-0.30); Calcium,Total 8.9 mg/dL (8.5-10.1); Chloride 108 mmol/L (98-107); Creatinine, Serum 0.62 mg/dL (0.55-1.02); EST Glomerular Filtration Rate 128 mL/min (>60); Est Glom Filt Rate - Afr Amer 155 mL/min (>60); Estimated Creatinine Clearance 123.34 ml/min; Globulin 3.3 g/dL (2.2-4.2); Glucose 92 mg/dL (74-106); Lipase 76 U/L (73-393); Potassium 3.8 mmol/L (3.5-5.1); Protein, Total 7.1 g/dL (6.4-8.2); Sodium Level 141 mmol/L (136-145)
[2021-01-16] MEDS: Pantoprazole Sodium 40 MG Tablet PO (14:47)
[2021-01-16 14:48] VITALS: BP 114/71; PULSE 87; RESP 16; O2SAT 98
[2021-01-16 14:56] LABS: Internal QC Validated? YES +Cl - CLEAR BKGD; Pregnancy, Serum, hCG Quali. NEGATIVE Negative
[2021-01-16 15:05] VITALS: RESP 15
== END 2021-01-16 15:06 | disposition home or self-care (01) ==
PROVIDERS: Emergency Provider Emergency Medicine
DX: I49.8 Other specified cardiac arrhythmias (principal); R55 Syncope and collapse; K21.9 Gastro-esophageal reflux disease without esophagitis; Z79.899 Other long term (current) drug therapy
CPT/HCPCS: 80048; 80076; 83690; 84703; 85025; 93005; 99284; J7040; A4216

== ENCOUNTER 2021-04-18 13:27 | Emergency (ER) | payer SELFPAY ==
[2021-04-18 13:28] VITALS: BP 109/67; PULSE 92; RESP 15; TEMP 36.2; O2SAT 97; BMI 18.8
--- NOTE | 2021-04-18 14:13 | EDS_ITS ---
HPI History of Present Illness Chief Complaint: Nausea/Vomiting Informant: patient Narrative Narrative: Patient is a 20-year-old female that has a history of POTS presenting with nausea and vomiting. She did have a syncopal episode today without normal with her pots. Patient states she woke up and just had multiple episodes of vomiting. She is concerned she is dehydrated. She denies any says abdominal pain. Denies any prior abdominal surgeries. Her last menstrual period was a week ago and she is not concerned for . She denies any chest pain, shortness of breath or difficulty breathing. Patient does admit to occasional marijuana use but denies any other drug use. She never had a thing like this before. She denies any sick contacts. She is not eaten anything abnormal lately. [facility] Medical History Asthma Home Medications norgestimate-ethinyl estradiol 1 ea PO DAILY 04/01/20 [History Last Taken Unknown] albuterol sulfate 1 - 2 puff INHALATION Q6H PRN PRN 05/28/20 [History Last Taken Unknown] ondansetron 4 mg PO Q8H PRN #14 tab 04/18/21 [Rx Last Taken Unknown] Allergy/AdvReac Type Severity Reaction Status Date / Time erythromycin base Allergy Hives Verified 04/18/21 13:29 Penicillins Allergy Hives Verified 04/18/21 13:29 Social History Smoking Status: Never smoker ROS ROS ED Constitutional Constitutional ED: Denies chills, fever(s) or malaise Eyes Eyes: Denies blurry vision or loss of vision ENT ENT ED: Denies rhinorrhea or sore throat Cardiovascular Cardiovascular: Denies chest pain or dizziness Respiratory/Chest Respiratory/Chest: Denies cough or dyspnea Gastrointestinal Gastrointestinal: Reports nausea and vomiting; Denies abdominal pain, constipation or diarrhea Genitourinary Genitourinary ED: Denies dysuria or hematuria Musculoskeletal Musculoskeletal: Denies arthralgias or myalgias Integumentary Denies rash or wounds Neurologic Neurologic: Denies focal weakness or headache(s) Psychiatric Psychiatric: Denies anxiety or behavioral changes EXAM Physical Exam Const Vital Signs: 04/18/21 13:28 Temperature 97.1 F L Temperature Source Temporal Pulse Rate 92 Respiratory Rate 15 Blood Pressure 109/67 Blood Pressure Mean 81 Pulse Ox 97 Oxygen Delivery Method Room Air Positive well nourished, well developed and no apparent distress General Appearance ED: well developed HEENT Reports normocephalic and moist mucous membranes atraumatic Nose: no nasal discharge General Ear: hearing grossly impaired External Ear: external ears normal Mouth ED: Yes moist mucous membranes abnormal Mouth: moist mucous membranes abnormal Eyes PERRL and EOMs intact bilaterally Neck full ROM, no lymphadenopathy, supple and no meningeal signs Chest Wall inspection of chest normal Resp normal respiratory effort and normal air movement Cardio regular rate and regular rhythm GI normal to inspection, nondistended, normoactive bowel sounds and non-distended Palpation: Negative for rebound tenderness present Extremity normal to inspection and full ROM Neuro oriented x3 and no focal motor deficits Sensorium / Orientation: alert Psych mental status grossly normal and thought process normal Skin no rashes or lesions noted and no wounds MDM MDM MDM Narrative Medical decision making narrative: Patient evaluated for nausea and vomiting for 1 day. She appears nontoxic in no acute distress. Her vital signs are normal. Her abdomen is soft. She does not appear dehydrated. Do not suspect any acute intra-abdominal surgical process given her physical exam. CBC, CMP, lipase and urinalysis are all grossly normal. Patient is given IV fluids and Zofran and had significant improvement of her symptoms. She will be discharged home follow-up with her PCP as needed. Given a prescription for Zofran. Counseled return precautions. Is counseled on the risk of vomiting associated with cannabis use. Lab Data Labs: Laboratory Results - last 24 hr 04/18/21 04/18/21 04/18/21 14:14 14:14 14:40 WBC 5.1 RBC 4.49 Hgb 13.7 Hct 40.9 MCV 91.1 MCH 30.5 MCHC 33.5 RDW Std Deviation 40.8 RDW Coeff of Janel 12.1 Plt Count 235 MPV 10.1 Immature Gran % (Auto) 0.200 Neut % (Auto) 77.8 H Lymph % (Auto) 17.3 L [place] % (Auto) 3.9 Eos % (Auto) 0.2 Baso % (Auto) 0.6 Absolute Neuts (auto) 4.0 Absolute Lymphs (auto) 0.88 Nucleated RBC % 0 Sodium 140 Potassium 3.7 Chloride 108 H Carbon Dioxide 29.0 Anion Gap 3 L BUN 9 Creatinine 0.60 Estim Creat Clear Calc 127.45 Est GFR (MDRD) Af Amer 162 Est GFR (MDRD) Non-Af 134 BUN/Creatinine Ratio 15.1 Glucose 96 Calcium 8.9 Total Bilirubin 0.40 AST 8 L ALT 21 Alkaline Phosphatase 14 L Total Protein 7.5 Albumin 3.9 Globulin 3.6 Albumin/Globulin Ratio 1.1 Lipase 55 L Urine Color Yellow Urine Clarity Cloudy Urine pH 8.0 Ur Specific [place] 1.010 Urine Protein Negative Urine Glucose (UA) Normal Urine Ketones Negative Urine Occult Blood Negative Urine Nitrite Negative Urine Bilirubin Negative Urine Urobilinogen Normal Ur Leukocyte Esterase 25 H Urine RBC 0 SEEN Urine WBC 10-25 SEEN Ur Squamous Epith Cells 0 SEEN Urine Bacteria 4+ Urine Mucus 0 SEEN Urine Test Negative Treatment and Re-Evaluation Comments:: IV fluids, Zofran?improvement of symptoms discharged home Discharge Plan Triage Chief Complaint: Nausea/Vomiting ED Provider: Grisel Fonseca Dx/Rx/DC Orders Clinical Impression: Vomiting Instructions: ED Vomiting (Adult) Prescriptions: New ondansetron 4 mg tablet,disintegrating 4 mg PO Q8H PRN (Reason: nausea and vomiting) Qty: 14 RF: 0 No Action norgestimate-ethinyl estradiol 1 EACH tablet 1 ea PO DAILY RF: 0 albuterol sulfate 1 INHALER inhaler 1 - 2 puff inhalation Q6H PRN PRN (Reason: Sob &/Or Wheezing) RF: 0 Primary Care Provider: Care Physician,No Primary Referrals: Care Physician,No Primary [Primary Care Provider] - Activity Restrictions/Additional Instructions: Follow-up with your your primary care doctor as needed. Return to emergency room with worsening symptoms. Disposition Disposition: Home, self care
[2021-04-18] MEDS: 0.9% Normal Saline 1,000 ML 1000 ML IV (14:18)
[2021-04-18] MEDS: Ondansetron 4 MG/2 ML Vial IV (14:18)
[2021-04-18 14:22] LABS: Absolute Lymphocyte Count 0.88 X10^3/uL (0.83-4.51); Basophil# 0.03 X10^3/uL; Basophil% 0.6 % (0-1); Eosinophil# 0.01 X10^3/uL; Eosinophils% 0.2 % (0-5); Hematocrit 40.9 % (37-47); Hemoglobin 13.7 g/dL (12.0-15.0); Lymphocyte # 0.88 X10^3/ul (0.83-4.51); Lymphocyte % 17.3 % (19-41); Mean Corp Hgb Conc 33.5 g/dL (32-36); Mean Corpuscular Hgb 30.5 pg (27.0-32.0); Mean Corpuscular Volume 91.1 fL (81-99); Mean Platelet Vol. 10.1 fl (6.2-12.0); Monocyte% 3.9 % (0-10); NRBC Flagged by Analyzer 0 % (0-5); Neutrophil # 3.96 X10^3/uL (2.7-7.7); Neutrophil % 77.8 % (47-70); Platelet Count 235 K/mm3 (150-450); RBC Distribution Width CV 12.1 % (11.6-14.6); RBC Distribution Width SD 40.8 fl (35.1-43.9); Red Blood Count 4.49 M/mm3 (4.2-5.4); White Blood Count 5.1 K/mm3 (4.4-11.0)
[2021-04-18 14:41] LABS: ALB/GLOB Ratio 1.1 RATIO (0.9-2.4); AST(SGOT) 8 U/L (15-37); Alanine Aminotransfer ALT/SGPT 21 U/L (13-56); Albumin, Serum 3.9 g/dL (3.2-5.0); Alkaline Phosphatase 14 U/L (45-117); Anion Gap 3 (5-15); BUN 9 mg/dL (7-18); BUN/Creat Ratio 15.1 RATIO (10-20); Calcium,Total 8.9 mg/dL (8.5-10.1); Chloride 108 mmol/L (98-107); EST Glomerular Filtration Rate 134 mL/min (>60); Est Glom Filt Rate - Afr Amer 162 mL/min (>60); Estimated Creatinine Clearance 127.45 ml/min; Globulin 3.6 g/dL (2.2-4.2); Glucose 96 mg/dL (74-106); Lipase 55 U/L (73-393); Potassium 3.7 mmol/L (3.5-5.1); Protein, Total 7.5 g/dL (6.4-8.2); Sodium Level 140 mmol/L (136-145)
[2021-04-18 14:47] LABS: Mucous, Urine 0 SEEN /hpf (<or=2+); Red Blood Cells-Urine 0 SEEN /hpf (0-5); Squamous Epithelial Cells - UA 0 SEEN /hpf (5-10)
[2021-04-18 14:52] LABS: Color, Urine Yellow (Yellow); Glucose, Dipstick Normal (Normal); Ketone-Dipstick Negative (Negative); Leukocyte Esterase-Dipstick 25 /ul (Negative); Nitrite-Dipstick Negative (Negative); Occult Blood-Urine Negative /ul (Negative); Protein-Dipstick Negative (Negative); Urine Bilirubin Dipstick Negative (Negative); Urine Clarity Cloudy (Clear); Urine Urobilinogen Normal (Normal)
[2021-04-18 14:56] LABS: Internal QC Validated? YES +Cl - CLEAR BKGD; Pregnancy, Urine Negative Negative
[2021-04-18 15:06] LABS: Bacteria 4+ /hpf (None Seen); White Blood Cells 10-25 SEEN /hpf (0-5)
[2021-04-18 15:58] VITALS: BP 96/67; PULSE 84; RESP 16; O2SAT 98
== END 2021-04-18 15:59 | disposition home or self-care (01) ==
PROVIDERS: Emergency Provider Emergency Medicine
DX: R11.2 Nausea with vomiting, unspecified (principal); R55 Syncope and collapse; J45.909 Unspecified asthma, uncomplicated; Z79.3 Long term (current) use of hormonal contraceptives
CPT/HCPCS: 80053; 81001; 81025; 83690; 85025; 96361; 96374; 99282; J7030; A4216; J2405

== ENCOUNTER 2021-08-17 14:34 | Emergency (ER) | payer MEDICAID, SELFPAY ==
[2021-08-17 14:35] VITALS: BP 116/75; PULSE 103; RESP 16; TEMP 36.2; O2SAT 98; BMI 19.3
--- NOTE | 2021-08-17 15:12 | RAD_ITS ---
STUDY: X-RAY - LEFT KNEE REASON FOR EXAM: Female, 21 years old. INJURY TECHNIQUE: 3 view(s) of the knee. COMPARISON: None. FINDINGS: Normal visualized distal femur. Normal visualized proximal tibia and fibula. Normal proximal tibiofibular articulation. Normal medial femorotibial compartment. Normal lateral femorotibial compartment. Normal patellofemoral articulation. The soft tissue structures are unremarkable. RAD/Knee 3 Views IMPRESSION: Normal x-ray examination of the knee. Electronically Signed: Jair Castaneda MD at 15:25 EDT , Service support ,
--- NOTE | 2021-08-17 15:49 | EDS_ITS ---
HPI History of Present Illness Chief Complaint: Lower Extremity Injury Informant: patient Narrative Narrative: Patient is a 21-year-old female with history of pots disease and runner's knee presenting with worsening left knee pain. Patient states in high school couple years ago she had a runner's knee and was in physical therapy. She states it slowly got better. Lately the pain in her left knee has gotten worse and is been significantly worse over the past 2 days. She states it stiff and feels like it is locking up. It is worse when she is walking. She is been alternating Tylenol and ibuprofen with no relief of her pain. No associated numbness. She denies any new injury. She denies any new exercise. 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 [facility] Medical History Asthma Home Medications norgestimate-ethinyl estradiol 1 ea PO DAILY 04/01/20 [History Last Taken Unknown] prednisone 40 mg PO DAILY #8 tab 08/17/21 [Rx Last Taken Unknown] Allergy/AdvReac Type Severity Reaction Status Date / Time erythromycin base Allergy Hives Verified 08/17/21 14:37 Penicillins Allergy Hives Verified 08/17/21 14:37 Social History Smoking Status: Never smoker ROS ROS ED Constitutional Constitutional ED: Denies chills, fever(s) or malaise Eyes Eyes: Denies blurry vision or loss of vision ENT ENT ED: Denies rhinorrhea or sore throat Cardiovascular Cardiovascular: Denies chest pain or dizziness Respiratory/Chest Respiratory/Chest: Denies cough or dyspnea Gastrointestinal Gastrointestinal: Denies nausea or vomiting Genitourinary Genitourinary ED: Denies dysuria or hematuria Musculoskeletal Musculoskeletal: Reports other Details: left knee pain ; Denies arthralgias or myalgias Integumentary Denies rash or wounds Neurologic Neurologic: Denies focal weakness or headache(s) Psychiatric Psychiatric: Denies anxiety or behavioral changes EXAM Physical Exam Const Vital Signs: 08/17/21 14:35 Temperature 97.2 F L Temperature Source Temporal Pulse Rate 103 H Respiratory Rate 16 Blood Pressure 116/75 Blood Pressure Mean 88 Pulse Ox 98 Oxygen Delivery Method Room Air Positive well nourished, well developed and no apparent distress General Appearance ED: well developed HEENT Reports normocephalic atraumatic Nose: no nasal discharge External Ear: external ears normal Mouth ED: Yes moist mucous membranes normal Eyes PERRL and EOMs intact bilaterally Neck full ROM and no meningeal signs Chest Wall inspection of chest normal Resp normal respiratory effort and normal air movement Cardio regular rate and regular rhythm Cardio Narrative: 2+ DP pulses GI normal to inspection, nondistended, normoactive bowel sounds and non-distended Extremity full ROM Extremity Narrative: Patient has some mild swelling of the suprapatellar area of the left knee. No obvious joint effusion appreciated. No overlying warmth or erythema. Positive tenderness and crepitus with palpation of the patella. Patient is able to fully extend leg. No calf tenderness or palpable cords. No laxity appreciated with valgus and varus stress. Negative anterior drawer test. Neuro oriented x3 and no focal motor deficits Psych mental status grossly normal and thought process normal Skin no rashes or lesions noted and no wounds MDM MDM MDM Narrative Medical decision making narrative: Patient is evaluated for worsening left knee pain. Is atraumatic. She has tenderness over the superior left knee and I wonder if she could have a suprapatellar bursitis. X-ray does not show any acute process. I suspect patient has a suprapatellar bursitis. Will be placed on a short course of steroids as NSAIDs are not effective. Counseled on RICe therapy. Given referral to orthopedics. Radiography X-Ray: Read by ED Physician, Read by Radiologist and Normal Diagnostic Testing: Radiology Impression Knee X-Ray 08/17/21 15:12 IMPRESSION: Normal x-ray examination of the knee. Electronically Signed: Jair Castaneda MD at 15:25 EDT , Service support , Discharge Plan Triage Chief Complaint: Lower Extremity Injury ED Provider: Grisel Fonseca Dx/Rx/DC Orders Clinical Impression: Suprapatellar bursitis of left knee Instructions: ED Bursitis, ED Knee Pain of Uncertain Cause Prescriptions: New prednisone 20 mg tablet 40 mg PO DAILY Qty: 8 RF: 0 No Action norgestimate-ethinyl estradiol 1 EACH tablet 1 ea PO DAILY RF: 0 Primary Care Provider: Care Physician,No Primary Referrals: Teddy Knott DO [STAFF PHYSICIAN] - Care Physician,No Primary [Primary Care Provider] - Disposition Disposition: Home, Self Care
[2021-08-17] MEDS: predniSONE 20 MG Tablet 40 MG PO (16:02)
== END 2021-08-17 16:18 | disposition home or self-care (01) ==
PROVIDERS: Emergency Provider Emergency Medicine
DX: M70.52 Other bursitis of knee, left knee (principal); Y93.02 Activity, running; J45.909 Unspecified asthma, uncomplicated
CPT/HCPCS: 73562; 99283

== ENCOUNTER 2021-11-03 07:06 | Emergency (ER) | payer OTHER, SELFPAY ==
[2021-11-03 07:08] VITALS: BP 118/76; PULSE 90; RESP 14; TEMP 36.4; O2SAT 96; BMI 18.7
--- NOTE | 2021-11-03 07:30 | EX.ED.GENINJ ---
HPI History of Present Illness Chief Complaint: Head Injury Informant: patient Onset/Context/Timing Onset: Days (4) Quality of Pain: Sharp Location: Left ear Worsened by: Nothing Relieved by: Nothing Associated Symptoms Associated Symptoms: Positive for Loss of consciousness; Negative for Parasthesias, Weakness, Loss of function, Inability to ambulate and Amnesia Length of loss of consciousness: Few seconds Narrative Narrative: Patient is with a head injury that occurred yesterday. Patient states she had 2 syncopal episodes yesterday. Patient states these came on after she had sharp pain in her left ear. Patient states that she was only out for a few seconds. Patient states the first episode occurred at work and the second episode occurred at home. Patient states she has some mild pressure in her head. Patient denies any paresthesias or weakness. Patient denies any difficulty ambulating. Patient states she has been having some intermittent pain in her left ear over the last 4 days. [facility] Medical History Asthma POTS (postural orthostatic tachycardia syndrome) Home Medications norgestimate-ethinyl estradiol 1 ea PO DAILY 04/01/20 [History Last Taken Unknown] Allergy/AdvReac Type Severity Reaction Status Date / Time erythromycin base Allergy Hives Verified 11/03/21 07:08 Penicillins Allergy Hives Verified 11/03/21 07:08 Social History Smoking Status: Never smoker ROS ROS ED Constitutional Constitutional ED: Denies chills or fever(s) Eyes Eyes: Denies blurry vision or change in vision ENT ENT ED: Reports ear pain left; Denies rhinorrhea or sore throat Cardiovascular Cardiovascular: Denies chest pain or palpitations Respiratory/Chest Respiratory/Chest: Denies cough or dyspnea Gastrointestinal Gastrointestinal: Reports nausea; Denies vomiting Genitourinary Genitourinary ED: Denies dysuria or hematuria Musculoskeletal Musculoskeletal: Denies back pain or neck pain Integumentary Denies abscess or rash Neurologic Neurologic: Reports headache(s); Denies weakness Allergic/Immunologic Allergic/Immunologic ED: Denies mouth swelling or urticaria EXAM Physical Exam Const Vital Signs: 11/03/21 07:08 11/03/21 07:20 11/03/21 07:42 Temperature 97.5 F L Temperature Source Temporal Pulse Rate 90 Pulse Rate [Sitting] 101 H Pulse Rate [Standing] 90 Respiratory Rate 14 Respiratory Effort Normal Non-Labored Respiratory Pattern Normal Blood Pressure 118/76 Blood Pressure [Lying] 100/68 Blood Pressure [Sitting] 108/70 Blood Pressure [Standing] 101/68 Blood Pressure Mean 90 Blood Pressure Mean [Lying] 78 Blood Pressure Mean [Sitting] 82 Blood Pressure Mean [Standing] 79 Pulse Ox 96 Oxygen Delivery Method Room Air Positive well nourished and well developed General Appearance ED: well developed HEENT Reports moist mucous membranes Neck supple and no JVD Resp normal respiratory effort and clear to auscultation bilaterally Cardio regular rate, regular rhythm and no murmurs GI normal to inspection, nondistended, normoactive bowel sounds and non-tender Palpation: soft Extremity normal to inspection General Extremety ED: Negative for edema or tenderness General Extremity: Negative for edema Neuro oriented x3, CN's II-XII intact bilaterally and no sensory deficits noted Sensorium / Orientation: alert Motor Exam: strength 5/5 throughout Psych mental status grossly normal Skin no rashes or lesions noted MDM MDM MDM Narrative Medical decision making narrative: CBC and basic metabolic profile were within normal limits. Serum hCG was negative. Orthostatic vital signs were obtained and were within normal limits. CT scan of the brain was obtained. There is no acute intracranial abnormality. This was interpreted by the radiologist and reviewed by myself. Patient was advised of her findings. Patient was instructed to follow-up with her primary care physician in 5 to 7 days. Patient was instructed to drink plenty of fluids. Patient was instructed return if worse in any way. Patient understood and was agreeable with the plan. All questions were answered. Lab Data Attestation: I reviewed the patient's lab results. Labs: Laboratory Results - last 24 hr 11/03/21 11/03/21 11/03/21 07:45 07:45 07:45 WBC 5.6 RBC 4.40 Hgb 13.2 Hct 41.0 MCV 93.2 MCH 30.0 MCHC 32.2 RDW Std Deviation 41.4 RDW Coeff of Janel 12.0 Plt Count 216 MPV 10.7 Immature Gran % (Auto) 0.200 Neut % (Auto) 61.6 Lymph % (Auto) 27.8 [place] % (Auto) 7.7 Eos % (Auto) 2.3 Baso % (Auto) 0.4 Absolute Neuts (auto) 3.5 Absolute Lymphs (auto) 1.56 Nucleated RBC % 0 Sodium 142 Potassium 4.3 Chloride 111 H Carbon Dioxide 26.0 Anion Gap 5 BUN 8 Creatinine 0.62 Estim Creat Clear Calc 122.00 Est GFR (MDRD) Af Amer 156 Est GFR (MDRD) Non-Af 129 BUN/Creatinine Ratio 13.0 Glucose 104 Calcium 8.9 Serum , Qual NEGATIVE Discharge Plan Triage Chief Complaint: Head Injury ED Provider: Enoc Forman Dx/Rx/DC Orders Clinical Impression: Head injury, Syncope Instructions: ED Head Injury (Adult), ED Fainting, Uncertain Cause Prescriptions: No Action norgestimate-ethinyl estradiol 1 EACH tablet 1 ea PO DAILY RF: 0 Primary Care Provider: Care Physician,No Primary Referrals: Michael Moeller MD [STAFF PHYSICIAN] - 5-7 Days Care Physician,No Primary [Primary Care Provider] - Disposition Disposition: Home, Self Care
--- NOTE | 2021-11-03 07:33 | CT_ITS ---
STUDY: CT BRAIN WITHOUT CONTRAST REASON FOR EXAM: Female, 21 years old. Syncopal episodes following injury. RADIATION DOSAGE (If Supplied By Facility): CTDIvol = ( 44.99 ) mGy, DLP = ( 762.36 ) mGycm TECHNIQUE: Transaxial CT imaging of the brain was performed without administration of intravenous contrast material. Individualized dose optimization techniques were used for this CT. COMPARISON: No relevant priors. FINDINGS: Normal soft tissue structures. Normal calvarium. Normal size ventricles and extra-axial spaces for the patient''s age. Normal white matter tracts of the cerebral hemispheres. Normal basal ganglia and thalami. Normal brainstem. Normal cerebellum. There is no intracranial hemorrhage. There are no findings of an acute ischemic infarction. There is opacification of the right maxillary sinus. CT/Brain/Head without Contrast IMPRESSION: Normal unenhanced CT scan of the brain. Opacification of the right maxillary sinus. Electronically Signed: Jair Castaneda MD at 8:22 EST , Service support ,
[2021-11-03 07:42] VITALS: BP 100/68; BP 101/68; BP 108/70; PULSE 101; PULSE 90
[2021-11-03 07:59] LABS: Absolute Lymphocyte Count 1.56 X10^3/uL (0.83-4.51); Absolute Neutrophil Count 3.5 X10^3/uL (2.0-7.7); Basophil# 0.02 X10^3/uL; Basophil% 0.4 % (0-1); Eosinophil# 0.13 X10^3/uL; Eosinophils% 2.3 % (0-5); Hemoglobin 13.2 g/dL (12.0-15.0); Lymphocyte # 1.56 X10^3/ul (0.83-4.51); Lymphocyte % 27.8 % (19-41); Mean Corp Hgb Conc 32.2 g/dL (32-36); Mean Corpuscular Volume 93.2 fL (81-99); Mean Platelet Vol. 10.7 fl (6.2-12.0); Monocyte# 0.43 X10^3/uL; Monocyte% 7.7 % (0-10); NRBC Flagged by Analyzer 0 % (0-5); Neutrophil # 3.47 X10^3/uL (2.7-7.7); Neutrophil % 61.6 % (47-70); Platelet Count 216 K/mm3 (150-450); RBC Distribution Width SD 41.4 fl (35.1-43.9); White Blood Count 5.6 K/mm3 (4.4-11.0)
[2021-11-03 08:12] LABS: Internal QC Validated? YES +Cl - CLEAR BKGD; Pregnancy, Serum, hCG Quali. NEGATIVE Negative
[2021-11-03 08:14] LABS: Anion Gap 5 (5-15); BUN 8 mg/dL (7-18); Calcium,Total 8.9 mg/dL (8.5-10.1); Chloride 111 mmol/L (98-107); Creatinine, Serum 0.62 mg/dL (0.55-1.02); EST Glomerular Filtration Rate 129 mL/min (>60); Est Glom Filt Rate - Afr Amer 156 mL/min (>60); Glucose 104 mg/dL (74-106); Potassium 4.3 mmol/L (3.5-5.1); Sodium Level 142 mmol/L (136-145)
[2021-11-03 08:40] VITALS: BP 102/70; PULSE 77; RESP 16; O2SAT 99
== END 2021-11-03 08:42 | disposition home or self-care (01) ==
PROVIDERS: Emergency Provider Emergency Medicine
DX: S09.90XA Unspecified injury of head, initial encounter (principal); X58.XXXA Exposure to other specified factors, initial encounter; Y93.9 Activity, unspecified; Y92.9 Unspecified place or not applicable; Y99.9 Unspecified external cause status; H92.02 Otalgia, left ear; R55 Syncope and collapse; J45.909 Unspecified asthma, uncomplicated
CPT/HCPCS: 70450; 80048; 84703; 85025; 99284; A4216

== ENCOUNTER 2022-07-18 17:54 | Emergency (ER) | payer MEDICAID, SELFPAY ==
[2022-07-18 17:55] VITALS: BP 147/83; PULSE 112; RESP 16; TEMP 37.2; O2SAT 98; BMI 18.6
[2022-07-18 18:12] LABS: Bacteria 0 SEEN /hpf (None Seen); Mucous, Urine 0 SEEN /hpf (<or=2+)
[2022-07-18 18:26] LABS: Color, Urine Red (Yellow); Glucose, Dipstick Normal (Normal); Ketone-Dipstick 5 mg/dl (Negative); Leukocyte Esterase-Dipstick 500 /ul (Negative); Nitrite-Dipstick Negative (Negative); Occult Blood-Urine 250 /ul (Negative); Protein-Dipstick 500 mg/dl (Negative); Specific Gravity, Urine 1.015 (1.002-1.030); Urine Bilirubin Dipstick Negative (Negative); Urine Clarity Turbid (Clear); Urine Urobilinogen Normal (Normal); Urine pH 6.5 (5.0 - 8.0)
[2022-07-18 18:31] LABS: Red Blood Cells-Urine > 100 SEEN /hpf (0-5)
[2022-07-18 18:32] LABS: Squamous Epithelial Cells - UA 0-5 SEEN /hpf (5-10)
[2022-07-18 18:35] LABS: White Blood Cells 25-50 SEEN /hpf (0-5)
[2022-07-18 18:36] LABS: Internal QC Validated? YES +Cl - CLEAR BKGD; Pregnancy, Urine Negative Negative
--- NOTE | 2022-07-18 18:51 | ED.VIS.FEGU ---
HPI HPI - Female History of Present Illness Chief Complaint: Complaint Narrative Narrative: 21-year-old female presenting with dysuria and hematuria. Patient states he has a history of interstitial cystitis and has not seen her urologist in over a year for this. She states her last couple of days she has had some lower pelvic pressure and now she is urinating blood. She states has been passing clots to her urethra as well. Last menstrual period ended last week. She is not had fever or chills but does states she has been nauseated and vomited a couple days ago. No history of kidney stones. She states she does have a history of recurrent UTIs as a child, and as a child she was scoped transurethrally. She has no diarrhea or constipation. No vaginal complaints. [facility] Medical History Asthma POTS (postural orthostatic tachycardia syndrome) Home Medications norgestimate 0.25 mg-ethinyl estradiol 35 mcg tablet 1 ea PO DAILY 04/01/20 [History Last Taken Unknown] ondansetron 4 mg disintegrating tablet 4 mg PO Q8H PRN nausea and vomiting #14 tabs 07/18/22 [Rx Last Taken Unknown] phenazopyridine 200 mg tablet (Pyridium) 200 mg PO TID PRN pain 6 doses #6 tabs 07/18/22 [Rx Last Taken Unknown] sulfamethoxazole 800 mg-trimethoprim 160 mg tablet (Bactrim DS) 1 tab PO BID #14 tabs 07/18/22 [Rx Last Taken Unknown] Allergy/AdvReac Type Severity Reaction Status Date / Time erythromycin base Allergy Hives Verified 07/18/22 17:54 Penicillins Allergy Hives Verified 07/18/22 17:54 Social History Smoking Status: Never smoker ROS ROS ED Constitutional Constitutional ED: Denies chills or fever(s) Eyes Eyes: Denies change in vision or diplopia ENT ENT ED: Denies rhinorrhea or sore throat Cardiovascular Cardiovascular: Denies chest pain or palpitations Respiratory/Chest Respiratory/Chest: Denies cough or dyspnea Gastrointestinal Gastrointestinal: Reports abdominal pain, nausea and vomiting Genitourinary Genitourinary ED: Reports dysuria and hematuria Musculoskeletal Musculoskeletal: Denies myalgias or neck pain Integumentary Denies abscess or Abrasions Neurologic Neurologic: Denies headache(s) or paresthesias Psychiatric Psychiatric: Denies anxiety or depression EXAM Physical Exam Const Vital Signs: 07/18/22 17:55 Temperature 98.9 F Temperature Source Temporal Pulse Rate 112 H Respiratory Rate 16 Blood Pressure 147/83 H Blood Pressure Mean 104 Pulse Ox 98 Oxygen Delivery Method Room Air Positive well nourished General Appearance ED: NAD HEENT Reports TM's clear and moist mucous membranes Tympanic Membrane ED: Yes TM's clear Eyes PERRL and EOMs intact bilaterally Neck no lymphadenopathy Resp normal respiratory effort Auscultation: Negative for rales, rhonchi or wheezes Cardio regular rate Rate: tachycardic GI soft to palpation GI Narrative: Suprapubic tenderness. Right CVA tenderness. Neuro oriented x3 and CN's II-XII intact bilaterally Sensorium / Orientation: alert Motor Exam: strength 5/5 throughout Psych mental status grossly normal Skin no rashes or lesions noted MDM MDM MDM Narrative Medical decision making narrative: Patient presenting with dysuria and hematuria. Urinalysis shows some urine protein to 500, occult blood 250, leukocyte esterase 500, greater than 100 red blood cells. She has 25-50 white blood cells with 0-5 squamous epithelials few. No bacteria present. hCG negative. Patient does have some CVA tenderness and I will obtain basic lab work. She was medicated with morphine, Zofran, Toradol as well as a liter of IV fluids. CT of the abdomen pelvis without contrast will be ordered to rule out kidney stone. CT of the abdomen pelvis is negative for stone. There are some physiologic free fluid in the pelvis. Patient does have a slight leukocytosis of 14.0. He is concerned she is developed a UTI although she has a history of interstitial nephritis. He is to follow-up with urology outpatient. She will be started on Pyridium, Zofran, Bactrim for home. Impression: 1. UTI 2. Dysuria 3. History of interstitial nephritis 4. Nausea/vomiting Lab Data Attestation: I reviewed the patient's lab results. Labs: Laboratory Results - last 24 hr 07/18/22 07/18/22 07/18/22 18:08 18:58 18:58 WBC 14.0 H RBC 4.53 Hgb 14.1 Hct 41.8 MCV 92.3 MCH 31.1 MCHC 33.7 RDW Std Deviation 38.9 RDW Coeff of Janel 11.6 Plt Count 208 MPV 10.1 Immature Gran % (Auto) 0.300 Neut % (Auto) 81.6 H Lymph % (Auto) 10.0 L [place] % (Auto) 7.7 Eos % (Auto) 0.1 Baso % (Auto) 0.3 Absolute Neuts (auto) 11.4 H Absolute Lymphs (auto) 1.40 Nucleated RBC % 0 Sodium 142 Potassium 3.5 Chloride 107 Carbon Dioxide 30.0 Anion Gap 5 BUN 5 L Creatinine 0.70 Estim Creat Clear Calc 103.40 Est GFR (MDRD) Af Amer 133 Est GFR (MDRD) Non-Af 110 BUN/Creatinine Ratio 7.1 L Glucose 105 Calcium 9.4 Urine Color Red Urine Clarity Turbid Urine pH 6.5 Ur Specific [place] 1.015 Urine Protein 500 H Urine Glucose (UA) Normal Urine Ketones 5 H Urine Occult Blood 250 H Urine Nitrite Negative Urine Bilirubin Negative Urine Urobilinogen Normal Ur Leukocyte Esterase 500 H Urine RBC > 100 SEEN Urine WBC 25-50 SEEN Ur Squamous Epith Cells 0-5 SEEN Urine Bacteria 0 SEEN Urine Mucus 0 SEEN Urine Test Negative Radiography Diagnostic Testing: Clinical Impression(s) from Imaging Studies Abdomen/Pelvis CT 07/18/22 18:55 IMPRESSION: (NOT LISTED IN ORDER OF SIGNIFICANCE) Stable left lower lobe nodule. ACR Lung CT Screening Reporting T Data System (Lung-RADS) score: 2 - Benign Appearance or Behavior. Recommend continued annual screening with low-dose CT (LDCT) in 12 months. There are no renal stones. There is no hydronephrosis. There is free fluid in the pelvis. This can be physiologic. Other findings as above. Electronically Signed: Kwame Canseco MD at 19:34 EDT , Discharge Plan Triage Chief Complaint: Complaint ED Provider: Dennys Hardin Dx/Rx/DC Orders Instructions: ED Bladder Infection, Male (Adult) Prescriptions: New sulfamethoxazole-trimethoprim [Bactrim DS] 800-160 mg tablet 1 tab PO BID Qty: 14 0RF phenazopyridine [Pyridium] 200 mg tablet 200 mg PO TID PRN (Reason: pain) Qty: 6 0RF ondansetron 4 mg tablet,disintegrating 4 mg PO Q8H PRN (Reason: nausea and vomiting) Qty: 14 0RF No Action norgestimate-ethinyl estradiol 1 EACH tablet 1 ea PO DAILY Primary Care Provider: Care Physician,No Primary Referrals: Care Physician,No Primary [Primary Care Provider] - Disposition Disposition: Home, Self Care
--- NOTE | 2022-07-18 18:55 | CT_ITS ---
STUDY: CT Abdomen And Pelvis W/O Contrast Injection 07/18/2022 7:32 PM REASON FOR EXAM: Female, 22 years old. ABDOMINAL PAIN hematuria TECHNIQUE: Transaxial images were obtained without oral contrast, and without intravenous contrast. Individualized dose optimization techniques were used for this CT. COMPARISON: 10/26/2020. FINDINGS: There is a 2.8 mm left lower lobe nodule. SE: 2 IM: 1. The visualized portions of the heart are within normal limits. Unremarkable liver. Unremarkable gallbladder and extrahepatic biliary system. Unremarkable spleen. Unremarkable pancreas. Unremarkable bilateral adrenal glands. No acute findings of the right kidney. No acute findings of the left kidney. Unremarkable visualized stomach. Unremarkable small intestine. Unremarkable colon. The appendix is visualized and appears unremarkable. There are no acute findings of the abdominal aorta. Unremarkable inferior vena cava. Subcentimeter mesenteric lymph nodes. Unremarkable urinary bladder. There is free fluid in the pelvis. This can be physiologic. Metallic jewelry is noted in the umbilical soft tissue. Unremarkable osseous structures. CT/Abdomen/Pelvis without Cont IMPRESSION: (NOT LISTED IN ORDER OF SIGNIFICANCE) Stable left lower lobe nodule. ACR Lung CT Screening Reporting T Data System (Lung-RADS) score: 2 - Benign Appearance or Behavior. Recommend continued annual screening with low-dose CT (LDCT) in 12 months. There are no renal stones. There is no hydronephrosis. There is free fluid in the pelvis. This can be physiologic. Other findings as above. Electronically Signed: Kwame Canseco MD at 19:34 EDT ,
[2022-07-18] MEDS: Morphine 4 MG/ML Syringe IV (19:01)
[2022-07-18] MEDS: Ondansetron 4 MG/2 ML Vial IV (19:01)
[2022-07-18] MEDS: 0.9% Normal Saline 1,000 ML 999 ML IV (19:01)
[2022-07-18] MEDS: Ketorolac 15 MG/ML Vial IV (19:02)
[2022-07-18 19:11] LABS: Absolute Neutrophil Count 11.4 X10^3/uL (2.0-7.7); Basophil# 0.04 X10^3/uL; Basophil% 0.3 % (0-1); Eosinophil# 0.01 X10^3/uL; Eosinophils% 0.1 % (0-5); Hematocrit 41.8 % (37-47); Hemoglobin 14.1 g/dL (12.0-15.0); Mean Corp Hgb Conc 33.7 g/dL (32-36); Mean Corpuscular Hgb 31.1 pg (27.0-32.0); Mean Corpuscular Volume 92.3 fL (81-99); Mean Platelet Vol. 10.1 fl (6.2-12.0); Monocyte# 1.08 X10^3/uL; Monocyte% 7.7 % (0-10); NRBC Flagged by Analyzer 0 % (0-5); Neutrophil # 11.43 X10^3/uL (2.7-7.7); Neutrophil % 81.6 % (47-70); Platelet Count 208 K/mm3 (150-450); RBC Distribution Width CV 11.6 % (11.6-14.6); RBC Distribution Width SD 38.9 fl (35.1-43.9); Red Blood Count 4.53 M/mm3 (4.2-5.4)
[2022-07-18 19:23] LABS: Anion Gap 5 (5-15); BUN 5 mg/dL (7-18); BUN/Creat Ratio 7.1 RATIO (10-20); Calcium,Total 9.4 mg/dL (8.5-10.1); Chloride 107 mmol/L (98-107); EST Glomerular Filtration Rate 110 mL/min (>60); Est Glom Filt Rate - Afr Amer 133 mL/min (>60); Glucose 105 mg/dL (74-106); Potassium 3.5 mmol/L (3.5-5.1); Sodium Level 142 mmol/L (136-145)
[2022-07-18 20:25] VITALS: PULSE 70; RESP 15; O2SAT 97
[2022-07-18] MEDS: Phenazopyridine 95 MG Tablet 190 MG PO (20:27)
[2022-07-18] MEDS: Smz/Tmp Ds Tablet 1 TABLET PO (20:27)
== END 2022-07-18 20:39 | disposition home or self-care (01) ==
PROVIDERS: Emergency Provider Student in an Organized Health Care Education/Training Program; Visit Provider Student in an Organized Health Care Education/Training Program
DX: N39.0 Urinary tract infection, site not specified (principal); R31.9 Hematuria, unspecified; R11.2 Nausea with vomiting, unspecified; J45.909 Unspecified asthma, uncomplicated; Z79.899 Other long term (current) drug therapy
CPT/HCPCS: 74176; 80048; 81001; 81025; 85025; 87077; 87086; 87088; 87186; 96361; 96374; 96375; 99284; J7030; A4216; J2405